=== PATIENT | male | born 2000 | race Caucasian/White ===

== ENCOUNTER 2021-06-19 16:12 | Emergency (ER) | payer SELFPAY ==
[2021-06-19] MEDS ORDERED: LIDOCAINE 1% MPF 5 ML VIAL ONE (16:57)
[2021-06-19] MEDS ORDERED: TETANUS & DIPHTHERIA TOX,ADULT 0.5 ML VIAL ONE (16:57)
--- NOTE | 2021-06-19 17:31 | EDPHYS ---
Physician Documentation [facility] Name: Tito Yo Age: 20 yrs Sex: Male : 2000 Arrival Date: 06/19/2021 Time: 16:16 Bed 10 Private MD: ED Physician Darlene Schwarz HPI: 06/19 16:51 This 20 yrs old Male presents to ER via Ambulatory with complaints of Laceration To jr8 Hand. 16:51 The patient has a laceration related to: cooking, from a knife, occurred at home, and jr8 there are no complicating factors. The injury was accidental. The laceration(s) is(are) located on the palm of right hand. Onset: The symptoms/episode began/occurred 30 minute(s) ago. 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 He states that he was about to cook chicken tenders, and accidentally cut his hand with a knife. The patient states that the knife was clean and not used. He reports that he is not current on his tetanus.. Historical: - Allergies: 16:34 No Known Allergies; ap3 - Home Meds: 16:34 None [Active]; ap3 - PMHx: 16:34 None; ap3 - Immunization history:: Last tetanus immunization: unknown. - Social history:: Smoking status: Patient reports the use of cigarette tobacco products, smokes one pack cigarettes per day. Reported history of juuling and/or vaping. Patient uses street drugs, marijuana. ROS: 16:51 Constitutional: Negative for fever, chills, and weight loss, Cardiovascular: Negative jr8 for chest pain, palpitations, and edema, Respiratory: Negative for shortness of breath, cough, wheezing, and pleuritic chest pain. 16:51 MS/extremity: Positive for injury or acute deformity, laceration. 16:51 Skin: Positive for laceration(s). Exam: 16:51 Constitutional: This is a well developed, well nourished patient who is awake, alert, jr8 and in no acute distress. Cardiovascular: Regular rate and rhythm with a normal S1 and S2. No gallops, murmurs, or rubs. Normal PMI, no JVD. No pulse deficits. Respiratory: Lungs have equal breath sounds bilaterally, clear to auscultation and percussion. No rales, rhonchi or wheezes noted. No increased work of breathing, no retractions or nasal flaring. 16:51 Musculoskeletal/extremity: ROM: full active range of motion, Circulation is intact in all extremities. Sensation intact. 16:51 Skin: injury, laceration(s), the wound is approximately 2.5 cm(s), with a depth of 0.25 cm(s), of the palm of right hand over the 2nd-3rd metacarpal heads. Vital Signs: 16:31 BP 153 / 63; Pulse 70; Resp 17; Temp 99.5; Pulse Ox 97% ; Weight 93.89 kg; Height 5 ft. ap3 11 in. (180.34 cm); Pain 6/10; 16:31 Body Mass Index 28.87 (93.89 kg, 180.34 cm) ap3 Laceration: 17:21 Wound Repair of 2.5cm ( 1.0in ) subcutaneous laceration to right hand. Distal jr8 neuro/vascular/tendon intact. Anesthesia: Local anesthetic administered with 3.5 mls of 1% lidocaine. Wound prep: Simple cleansing with betadine by il. Skin closed with 6 5-0 Prolene using simple sutures and sterile technique. Dressed with 4x4's. Patient tolerated well. MDM: 16:40 Patient medically screened. jr8 17:28 Data reviewed: vital signs, nurses notes, and as a result, I will discharge patient. jr8 Data interpreted: Pulse oximetry: on room air is 97 %. Interpretation: normal. Counseling: I had a detailed discussion with the patient and/or guardian regarding: the historical points, exam findings, and any diagnostic results supporting the discharge/admit diagnosis, the need for outpatient follow up, a family practitioner, to return to the emergency department if symptoms worsen or persist or if there are any questions or concerns that arise at home. 17:28 Data reviewed: vital signs, nurses notes. ED course: The laceration was repaired and jr8 the tetanus was administered. The patient was instructed to return in 7 to 10 days for suture removal. Home wound care was also discussed along with signs and symptoms of infection and when to follow up.. 06/19 16:49 Order name: Dressing - Wound; Complete Time: 17:40 jr8 06/19 16:49 Order name: Gloves, Sterile; Complete Time: 17:11 jr8 06/19 16:49 Order name: Prolene, Sutures; Complete Time: 17:11 jr8 06/19 16:49 Order name: Setup Suture Tray; Complete Time: 17:11 jr8 Administered Medications: 17:00 Drug: Tetanus-Diphtheria Toxoid Adult 0.5 ml {H[employer]ler: [employer]. Exp: 1 05/26/2023. Lot #: [id number]. } Route: IM; Site: right deltoid; 17:40 Follow up: Response: No adverse reaction 1 17:11 Drug: Lidocaine (1 %) 5 mg {Note: during suture repair.} Route: Infiltration; [facility] 17:40 Follow up: Response: No adverse reaction [facility] Disposition Summary: 06/19/21 17:30 Discharge Ordered Location: Home jr8 Problem: new jr8 Symptoms: have improved jr8 Condition: Stable jr8 Diagnosis - Hand Laceration/ Open wound of hand jr8 Followup: jr8 - With: Private Physician - When: 7 - 10 days - Reason: Staple/Suture removal Discharge Instructions: - Discharge Summary Sheet jr8 - Sutures, Allen, or Adhesive Wound Closure jr8 - Sutured Wound Care jr8 Forms: - Medication Reconciliation Form jr8 - Thank You Letter jr8 - Antibiotic Education jr8 - Prescription Opioid Use jr8 Signatures: Saul León PA PA jr8 Rima Henderson RN RN ap3 Bhavani Crain RN RN ll1
--- NOTE | 2021-06-19 17:31 | ER ---
Nurse's Notes [facility] Name: Tito Yo Age: 20 yrs Sex: Male : 2000 Arrival Date: 06/19/2021 Time: 16:16 Bed 10 Private MD: Diagnosis: Hand Laceration/ Open wound of hand Presentation: 06/19 16:31 Chief complaint: Patient states: he was cooking in the kitchen, when he cut himself ap3 with a clean knife. Patient cut the palm area of his right hand. bleeding is controlled at this time. Coronavirus screen: At this time, the client does not indicate any symptoms associated with coronavirus-19. Ebola Screen: No symptoms or risks identified at this time. Complicating Factors: There are no complicating factors for this patient. Initial Sepsis Screen: Does the patient meet any 2 criteria? No. Patient's initial sepsis screen is negative. Does the patient have a suspected source of infection? No. Patient's initial sepsis screen is negative. Risk Assessment: Do you want to hurt yourself or someone else? Patient reports no desire to harm self or others. Onset of symptoms was June 19, 2021. 16:31 Method Of Arrival: Ambulatory ap3 16:31 Acuity: SHAJI 4 ap3 Triage Assessment: 16:36 General: Appears in no apparent distress. Behavior is calm, cooperative, appropriate ap3 for age. Pain: Complains of pain in palm of right hand and Right first web space Pain began suddenly, 1 hour ago. Neuro: Level of Consciousness is awake, alert, obeys commands, Oriented to person, place, time, situation, Appropriate for age Gait is steady, Speech is normal. Cardiovascular: Patient's skin is warm and dry. Respiratory: Airway is patent Respiratory effort is even, unlabored, Respiratory pattern is regular, symmetrical. Injury Description: Laceration sustained to palm of right hand and Right first web space is clean. Historical: - Allergies: 16:34 No Known Allergies; ap3 - Home Meds: 16:34 None [Active]; ap3 - PMHx: 16:34 None; ap3 - Immunization history:: Last tetanus immunization: unknown. - Social history:: Smoking status: Patient reports the use of cigarette tobacco products, smokes one pack cigarettes per day. Reported history of juuling and/or vaping. Patient uses street drugs, marijuana. Screenin:37 Abuse screen: Denies threats or abuse. Nutritional screening: No deficits noted. ap3 Tuberculosis screening: No symptoms or risk factors identified. 17:40 Fall Risk Total Seth Fall Scale indicates No Risk (0-24 pts). ll1 Assessment: 16:37 Musculoskeletal: laceration to right hand. ap3 17:39 Reassessment: No changes from previously documented assessment. Patient and/or family ll1 updated on plan of care and expected duration. Pain level reassessed. Patient is alert, oriented x 3, equal unlabored respirations, skin warm/dry/pink. Vital Signs: 16:31 BP 153 / 63; Pulse 70; Resp 17; Temp 99.5; Pulse Ox 97% ; Weight 93.89 kg; Height 5 ft. ap3 11 in. (180.34 cm); Pain 6/10; 16:31 Body Mass Index 28.87 (93.89 kg, 180.34 cm) ap3 ED Course: 16:16 Patient arrived in ED. am2 16:34 Triage completed. ap3 16:37 Arm band placed on left wrist. ap3 16:38 Patient placed in an exam room, on a stretcher. ll1 16:40 Saul León PA is PHCP. jr8 16:40 Darlene Schwarz MD is Attending Physician. jr8 16:44 Bhavani Crain, DAYDAY is Primary Nurse. ll1 16:44 Patient has correct armband on for positive identification. Bed in low position. Call ll1 light in reach. Cardiac monitoring not applicable on this patient. 17:39 Wound care: to laceration located on right hand was dressed with Neosporin, band aid, ll1 Patient tolerated well. 17:40 No provider procedures requiring assistance completed. Patient did not have IV access ll1 during this emergency room visit. Administered Medications: 17:00 Drug: Tetanus-Diphtheria Toxoid Adult 0.5 ml {Manager Inpatient: [employer]. Exp: ll1 05/26/2023. Lot #: [id number]. } Route: IM; Site: right deltoid; 17:40 Follow up: Response: No adverse reaction ll1 17:11 Drug: Lidocaine (1 %) 5 mg {Note: during suture repair.} Route: Infiltration; ll1 17:40 Follow up: Response: No adverse reaction ll1 Outcome: 17:30 Discharge ordered by MD. clarke 17:40 Discharged to home ambulatory. ll1 17:40 Condition: stable 17:40 Discharge instructions given to patient, Instructed on discharge instructions, follow up and referral plans. wound care, Demonstrated understanding of instructions, follow-up care, wound care. 17:40 Patient left the ED. ll1 Signatures: Saul León PA PA jr8 Rima Gee am2 Rima Henderson RN RN ap3 Bhavani Crain RN RN ll1
[2021-06-20 07:20] VITALS: BP 153/63; TEMP 99.5; O2SAT 97
== END 2021-06-19 17:40 | disposition home or self-care (01) ==
LOC: ER 16:12
PROC: 0JQJ0ZZ Repair Right Hand Subcutaneous Tissue and Fascia, Open Approach (ICD-10-PCS; principal; 2021-06-19)
DX: S61.411A Laceration without foreign body of right hand, initial encounter (principal); W26.0XXA Contact with knife, initial encounter; Y93.G3 Activity, cooking and baking; Y92.000 Kitchen of unspecified non-institutional (private) residence as the place of occurrence of the external cause; Z23 Encounter for immunization; F17.210 Nicotine dependence, cigarettes, uncomplicated
CPT/HCPCS: 90471; 90714; 99283